=== PATIENT | male | born 1945 | race Caucasian/White ===

== ENCOUNTER → 2020-05-10 10:40 | Outpatient (CLI) | payer MEDICARE, BC, SELFPAY ==
--- NOTE | 2020-05-10 10:42 | DI.US.S_ITS ---
PROCEDURE: US ABD AORTA ANEURYSM SCREEN INDICATIONS: AAA screen TECHNIQUE: Real time scanning was performed of the aorta and iliac arteries, with image documentation. COMPARISON: [facility], ABD AORTA ANEURYSM SCREENING, 09/15/2015, 12:28. FINDINGS: Aorta: Proximal aortic diameter measures 2.2 cm. Mid-aorta measures 2 cm. Distal aortic diameter is 1.7 cm. Iliac arteries: Right common iliac artery measures 1.5 cm. Left common iliac artery measures 1.7 cm. IMPRESSION: Negative for aneurysm. Dictated by: Roby Winter M.D. on 05/10/2020 at 10:49 Approved by: Roby Winter M.D. on 05/10/2020 at 10:50
== END ==
PROVIDERS: PCP Student in an Organized Health Care Education/Training Program; Referring Provider Student in an Organized Health Care Education/Training Program; Visit Provider Student in an Organized Health Care Education/Training Program
DX: Z13.6 Encounter for screening for cardiovascular disorders (principal); Z87.891 Personal history of nicotine dependence
CPT/HCPCS: 76706

== ENCOUNTER → 2023-02-28 14:23 | Outpatient (CLI) | payer MEDICARE, BC, SELFPAY ==
--- NOTE | 2023-02-28 14:26 | DI.RAD.S_ITS ---
PROCEDURE: XR ABDOMEN 1V INDICATIONS: abdominal pain TECHNIQUE: One view of the abdomen acquired. COMPARISON: [facility], , ABDOMEN 2 VIEW, 09/17/2015, 11:53. FINDINGS: Surgical changes and devices: Postsurgical changes in pelvis.. Bowel: Bowel gas pattern is nonspecific with paucity of small bowel gas. Soft tissues: No suspicious abdominal calcifications. Visualized solid organ contours appear normal in size. Bones: No suspicious bony lesions. Severe levoscoliosis and degenerative changes in the lower thoracic and lumbar spine. Osteopenia. IMPRESSION: Nonspecific bowel gas pattern. If clinical symptoms persist, CT is suggested for further evaluation. Dictated by: Vikas Andrade M.D. on 02/28/2023 at 17:14 Approved by: Vikas Andrade M.D. on 02/28/2023 at 17:15
== END ==
PROVIDERS: PCP Student in an Organized Health Care Education/Training Program; Referring Provider Internal Medicine; Visit Provider Internal Medicine
DX: R14.0 Abdominal distension (gaseous) (principal)
CPT/HCPCS: 74018

== ENCOUNTER → 2023-03-10 11:13 | Outpatient (CLI) | payer MEDICARE, BC, SELFPAY ==
--- NOTE | 2023-03-10 | DI.US.S_ITS ---
PROCEDURE: US THYROID INDICATIONS: goiter TECHNIQUE: Real-time scanning was performed of the thyroid gland, with image documentation. COMPARISON: None. FINDINGS: Right: Thyroid lobe measures 4.9 x 1.6 x 1.5 cm, and is homogeneous in echotexture. Left: Thyroid lobe measures 3.0 x 1.5 x 1.5 cm, and is homogenous in echotexture. Isthmus: 0.2 cm thick. There are 3 mm colloid cyst within both thyroid lobes. IMPRESSION: Normal appearance of the thyroid. No nodules requiring follow-up. ACR TI-RADS definitions and recommendations: TI-RADS 1 (benign): 0 points. FNA not needed. TI-RADS 2 (not suspicious): 2 points. FNA not needed. TI-RADS 3 (mildly suspicious): 3 points. * FNA if 2.5 cm or larger, follow up if 1.5 cm or larger (at 1, 3, and 5 years). TI-RADS 4 (moderately suspicious): 4-6 points. * FNA if 1.5 cm or larger, follow up if 1 cm or larger (at 1, 2, 3, and 5 years). TI-RADS 5 (highly suspicious): 7 points or more. * FNA if 1 cm or larger, follow up if 0.5 cm or larger (every year for 5 years). Dictated by: Krunal Woodward M.D. on 03/10/2023 at 15:19 Approved by: Krunal Woodward M.D. on 03/10/2023 at 15:21
--- NOTE | 2023-03-10 | DI.CT.S_ITS ---
PROCEDURE: CT ABDOMEN PELVIS W CON INDICATIONS: Periumbilical pain TECHNIQUE: After the administration of intravenous contrast, axial sections acquired from the lung bases to the pubic symphysis. Coronal and sagittal reformats were performed. For radiation dose reduction, the following was used: automated exposure control, adjustment of mA and/or kV according to patient size. COMPARISON: None. FINDINGS: Image quality: Diagnostic. Lower Chest: No significant findings. ABDOMEN: Liver: There is diffuse hypoattenuation of the liver parenchyma relative to the spleen compatible with hepatic steatosis. Gallbladder: No radiopaque gallstones or wall thickening. Biliary ducts: No biliary dilation. Pancreas: No ductal dilation. Spleen: Size is within normal limits. Adrenal Glands: No adrenal nodules. Kidneys and Ureters: No solid mass. There are multiple peripelvic cystic lesions in the bilateral kidneys more pronounced on the left. These are favored to represent peripelvic cysts. No evidence for hydronephrosis. No hydroureter. No perinephric stranding. No complex renal cystic lesion which requires follow up. Stomach and Bowel: Normal colonic caliber, without significant wall thickening. Extensive colonic diverticulosis. No evidence for acute diverticulitis. Postsurgical changes of prior appendectomy. Peritoneum: No abnormal intraperitoneal fluid. No free air. Ventral Wall: No hernia. Abdominal Nodes: No retroperitoneal or mesenteric adenopathy by size criteria. Vessels: Scattered atherosclerotic calcifications of the abdominal aorta and iliac vessels without aneurysmal dilatation. The inferior vena cava appears patent. PELVIS: Pelvic Organs: There is prostatomegaly. Bladder: Urinary bladder thickness appears normal for degree of distention. No perivesicular inflammatory stranding. Pelvic Nodes: No enlarged lymph nodes. Miscellaneous: No inguinal hernias are seen. Bones: No acute vertebral body compression fractures. Multilevel spondylitic changes throughout the imaged spine. No suspicious osseous lesions. IMPRESSION: 1. CT abdomen and pelvis without acute abnormalities to explain patient's periumbilical pain. 2. Multiple left greater than right renal peripelvic hypodensities likely representing peripelvic cyst versus hydronephrosis. Consider further evaluation with CT IVP to confirm. 3. Extensive colonic diverticulosis without acute diverticulitis. 4. Prostatomegaly. 5. Hepatic steatosis 6. Status post appendectomy. 7. Atherosclerosis. Dictated by: Mert Silva M.D. on 03/10/2023 at 14:45 Approved by: Mert Silva M.D. on 03/10/2023 at 14:59
== END ==
PROVIDERS: PCP Internal Medicine; Referring Provider Internal Medicine; Visit Provider Internal Medicine
DX: E01.0 Iodine-deficiency related diffuse (endemic) goiter (principal); R10.33 Periumbilical pain; K57.90 Diverticulosis of intestine, part unspecified, without perforation or abscess without bleeding; N40.0 Benign prostatic hyperplasia without lower urinary tract symptoms; K76.0 Fatty (change of) liver, not elsewhere classified; I70.0 Atherosclerosis of aorta
CPT/HCPCS: 74177; 76536; Q9967